=== PATIENT | male | born 1935 | race Hispanic/Latino ===

== ENCOUNTER 2017-05-20 21:34 | Observation (INO) | payer MEDICARE, MEDICAID ==
[2017-05-20 21:34] VITALS: BMI 28.8
[2017-05-20] MEDS ORDERED: Aspirin 325 mg EC Tablets PO ONE (22:31)
[2017-05-20 22:54] LABS: BASO % 0.5 % (0.0-2.0); EOS # 0.4 K/uL (0.0-0.7); EOS % 6.3 % (0.0-4.0); HEMATOCRIT 36.6 % (35.0-51.0); LYMPH # 2.1 K/uL (1.0-4.3); LYMPH % 31.9 % (20.0-40.0); MEAN CELL VOLUME 93.5 fL (80.0-94.0); MEAN CORPUSCULAR HEMOGLOBIN 31.6 pg (27.0-31.0); MEAN CORPUSCULAR HGB CONC 33.9 g/dL (33.0-37.0); MEAN PLATELET VOLUME 8.7 fL (7.2-11.7); MONO # 0.5 K/uL (0.0-0.8); MONO % 7.7 % (0.0-10.0); NRBC % 0.1 % (0.0-2.0); RED CELL DISTRIBUTION WIDTH 14.2 % (11.5-14.5); WHITE BLOOD COUNT 6.5 K/uL (4.8-10.8)
[2017-05-20 23:01] LABS: CHLORIDE 103 mmol/L (98-107)
[2017-05-20 23:02] LABS: POTASSIUM 4.4 mmol/L (3.6-5.2); SODIUM 135 mmol/L (132-148)
[2017-05-20 23:04] LABS: ALB/GLOB RATIO 1.5 (1.0-2.1); ALKALINE PHOSPHATASE 69 U/L (38-126); AST/SGOT 29 U/L (17-59); BLOOD UREA NITROGEN 23 mg/dL (9-20); CARBON DIOXIDE 25 mmol/L (22-30); GFR AFRICAN-AMERICAN > 60
[2017-05-20 23:05] LABS: ALT/SGPT 24 U/L (21-72); CALCIUM 9.2 mg/dl (8.6-10.4); GLUCOSE,RANDOM 101 mg/dL (75-110)
--- NOTE | 2017-05-20 23:31 | C.PDOC ---
History Of Present Illness 81 y/o M c PMHx HTN, HLD, CAD, CHF p/w chest pain x 2 hours. Patient began having the pain at rest, on the L sided chest in the anterior axillary area. Denies nausea, vomiting, dyspnea, fever, cough. Had R hand discomfort yesterday , now gone. Time Seen by Provider: 05/20/17 22:07 Chief Complaint (Nursing): Chest Pain Past Medical History Vital Signs: Last Vital Signs Temp 98.0 F 05/20/17 21:42 Pulse 65 05/20/17 21:42 Resp 18 05/20/17 21:42 BP 194/76 H 05/20/17 21:42 Pulse Ox 96 05/20/17 21:42 - Medical History PMH: Arthritis, CHF, Diabetes, HTN, Hypercholesterolemia, Peripheral Edema Denies: Chronic Kidney Disease - [facility] Procedures APPLICATION OF SPLINT (03/06/14) Family History: States: Unknown Family Hx - Social History Hx Tobacco Use: No Hx Alcohol Use: No Hx Substance Use: No - Immunization History Hx Tetanus Toxoid Vaccination: No Hx Influenza Vaccination: Yes (2017) Hx Pneumococcal Vaccination: Yes Review Of Systems Except As Marked, All Systems Reviewed And Found Negative. Constitutional: Negative for: Fever Respiratory: Negative for: Shortness of Breath Physical Exam - Physical Exam Appears: No Acute Distress Skin: No Rash (in area of pain) Head: Normacephalic Eye(s): bilateral: PERRL Oral Mucosa: Moist Neck: Supple Chest: Symmetrical, No Deformity, Tenderness (L sided thoracic) Cardiovascular: Rhythm Regular Respiratory: Normal Breath Sounds Gastrointestinal/Abdominal: Soft, No Tenderness Back: No CVA Tenderness, No Vertebral Tenderness Extremity: No Tenderness Pulses: Left Radial: Normal, Right Radial: Normal Neurological/Psych: Normal Speech Gait: Steady ED Course And Treatment - Laboratory Results Result Diagrams: 05/20/17 22:49 05/20/17 22:49 O2 Sat by Pulse Oximetry: 96 Medical Decision Making Medical Decision Making: CXR shows no infiltrate, PTX, or rib fracture. EKG shows NSR 66 bpm, no ST elevations. LBBB morphology. No change from previous. ASA administered. Dr. Jurado accepts patient to his service for cardiac observation. Disposition Discussed With : Sancho Jurado - Disposition Disposition: HOSPITALIZED Disposition Time: 23:31 Condition: FAIR - POA Core Measure Indicators: Chest Pain - Clinical Impression Clinical Impression: Chest pain
[2017-05-21 02:29] VITALS: RESP 20
--- NOTE | 2017-05-21 07:40 | RAD ---
HISTORY: chest pain COMPARISON: 06/29/2016 FINDINGS: LUNGS: Moderate venous congestion with patchy consolidative changes at the left lung base. Biapical pleural thickening. PLEURA: As above. CARDIOVASCULAR: Cardiomegaly. Enlarged ectatic aorta. Status post median sternotomy. OSSEOUS STRUCTURES: No significant abnormalities. VISUALIZED UPPER ABDOMEN: Normal. OTHER FINDINGS: None. IMPRESSION: Moderate venous congestion with patchy consolidative changes at the left lung base. Biapical pleural thickening. Cardiomegaly. Enlarged ectatic aorta. Status post median sternotomy.
--- NOTE | 2017-05-21 07:47 | RAD ---
HISTORY: chest pain COMPARISON: 05/20/2017 TECHNIQUE: Chest PA and lateral FINDINGS: LUNGS: Biapical pleural thickening with upper lobe granulomatous changes. Diffuse increased interstitial lung markings suggestive for edema and or infiltrate. Mild patchy increased markings at the lung bases. Nodular densities at the lung bases may represent nipple shadows. PLEURA: As above. CARDIOVASCULAR: Status post median sternotomy. Tortuous ectatic aorta. Mild cardiomegaly. OSSEOUS STRUCTURES: Prominent degenerative changes in the spine with a thoracic kyphosis. VISUALIZED UPPER ABDOMEN: Normal. OTHER FINDINGS: None. IMPRESSION: Biapical pleural thickening with upper lobe granulomatous changes. Diffuse increased interstitial lung markings suggestive for edema and or infiltrate. Mild patchy increased markings at the lung bases. Nodular densities at the lung bases may represent nipple shadows.
[2017-05-21 08:19] VITALS: TEMP 98.1; O2SAT 98
[2017-05-21] MEDS ORDERED: Digoxin 125 mcg (0.125 mg) Tab PO SCH (10:00)
[2017-05-21] MEDS ORDERED: CHOLECALCIFEROL PO SCH (10:00)
[2017-05-21] MEDS ORDERED: [UNRECOGNIZED DRUG - OTHER] PO SCH (10:00)
[2017-05-21] MEDS ORDERED: RAMIPRIL 10 MG PO SCH (10:00)
[2017-05-21] MEDS ORDERED: METFORMIN PO SCH (10:00)
[2017-05-21] MEDS ORDERED: GLIPIZIDE PO SCH (10:00)
[2017-05-21 10:08] VITALS: BP 144/71; PULSE 58
--- NOTE | 2017-05-21 10:30 | CP.PCM.HP ---
History of Present Illness - History of Present Illness History of Present Illness: Recommend: Left-sided chest pain History of present illness: 81-year-old male with a history of hypertension, CAD, status post a coronary artery bypass grafting in 2003, recently seen by a Dr. Jurado, in the office for some scrotal problems. Patient was given cream for that, and he complained to his sister that he started having some pain over the left side, and immediately patient was brought into the emergency room. In the ER patient had some chest pain, but it resolved after aspirin. Patient did not have any nausea vomiting, he did not be having any headache. Past medical history: Hypertension, high cholesterol, CAD, status post a heart surgery Allergies: No known drug allergy Personal history:, Nonalcoholic. Patient is a nonsmoker Review of systems: Patient is comfortable at this time. She is not in any distress. No chest pain now. Skinas noted in the legs. Rash also noted in the gluteal area. Abdominal pain negative. Vital signs reviewed No neck vein distention noted Chest good air entry bilaterally, no wheezing or rales noted CVS regular heart sound, no murmur noted Abdomen soft, nontender. Extremities no pedal edema [employer] alert awake oriented -3, no functional neurological deficit Patient's labs reviewed in Cardiac enzymes are negative EKG showing: Normal sinus rhythm, lateral lead ST depression noted Chest x-ray showing bibasilar haziness, nonspecific otherwise Assessment and recommendation: 81-year-old male with history of hypertension CAD status post a craniotomy bypass grafting came to the office with a nonspecific chest pain. EKG showing lateral leads and T-wave inversion. No new changes. Cardiac enzymes so far negative. Will get a cardiology opinion. I spoke to the patient's his sister Mounika. They'll continue to monitor. Out of bed to chair Repeat EKG. We'll follow the patient Present on Admission - Present on Admission Any Indicators Present on Admission: No History of DVT/PE: No History of Uncontrolled Diabetes: No Urinary Catheter: No Decubitus Ulcer Present: No Past Patient History - Past Medical History & Family History Past Medical History?: Yes - Past Social History Smoking Status: Never Smoked - CARDIAC Hx Cardiac Disorders: Yes Hx Congestive Heart Failure: Yes Hx Hypercholesterolemia: Yes Hx Hypertension: Yes Hx Peripheral Edema: Yes - PULMONARY Hx Respiratory Disorders: No - NEUROLOGICAL Hx Neurological Disorder: Yes ("SOMETIMES FORGETS") Other/Comment: HX: NEUROPATHY IN LEGS - HEENT Hx HEENT Problems: Yes Hx Macular Degeneration: Yes - RENAL Hx Chronic Kidney Disease: No - ENDOCRINE/METABOLIC Hx Endocrine Disorders: Yes Hx Diabetes Mellitus Type 2: Yes - HEMATOLOGICAL/ONCOLOGICAL Hx Blood Disorders: No - INTEGUMENTARY Hx Dermatological Problems: Yes Other/Comment: HX: SKIN LESIONS ON FACE AND LEFT HAND REMOVED 2015, 2016 Lymphedema BLE dry brown discoloration peeling scaly skin - MUSCULOSKELETAL/RHEUMATOLOGICAL Hx Musculoskeletal Disorders: No Hx Falls: No - GASTROINTESTINAL Hx Gastrointestinal Disorders: No - GENITOURINARY/GYNECOLOGICAL Hx Genitourinary Disorders: No - PSYCHIATRIC Hx Psychophysiologic Disorder: No Hx Substance Use: No - SURGICAL HISTORY Hx Surgeries: Yes Hx Herniorrhaphy: Yes (2014) Hx Open Heart Surgery: Yes (Triple bypass, 2003) - ANESTHESIA Hx Anesthesia: Yes Hx Anesthesia Reactions: No Hx Malignant Hyperthermia: No Has any member of the family had a problem w/ anesthesia?: No Meds Allergies/Adverse Reactions: Allergies Allergy/AdvReac Type Severity Reaction Status Date / Time No Known Allergies Allergy Verified 03/06/14 20:46 Results - Vital Signs Recent Vital Signs: Last Vital Signs Temp 98.1 F 05/21/17 07:30 Pulse 54 L 05/21/17 07:30 Resp 20 05/21/17 07:30 BP 144/71 05/21/17 10:07 Pulse Ox 98 05/21/17 07:30 - Labs Result Diagrams: 05/20/17 22:49 05/20/17 22:49 Labs: Laboratory Results - last 24 hr 05/20/17 05/20/17 05/21/17 22:49 22:49 06:19 WBC 6.5 RBC 3.91 L Hgb 12.4 Hct 36.6 MCV 93.5 MCH 31.6 H MCHC 33.9 RDW 14.2 Plt Count 130 MPV 8.7 Neut % (Auto) 53.6 Lymph % (Auto) 31.9 [place] % (Auto) 7.7 Eos % (Auto) 6.3 H Baso % (Auto) 0.5 Neut # 3.5 Lymph # 2.1 [place] # 0.5 Eos # 0.4 Baso # 0.0 Sodium 135 Potassium 4.4 Chloride 103 Carbon Dioxide 25 Anion Gap 12 BUN 23 H Creatinine 0.7 L Est GFR ( Amer) > 60 Est GFR (Non-Af Amer) > 60 POC Glucose (mg/dL) 140 H Random Glucose 101 Calcium 9.2 Total Bilirubin 1.0 AST 29 ALT 24 Alkaline Phosphatase 69 Total Creatine Kinase 80 CK-MB (Mass) 1.18 Troponin I 0.0130 Troponin I, Quant Total Protein 7.0 Albumin 4.2 Globulin 2.8 Albumin/Globulin Ratio 1.5 05/21/17 07:19 WBC RBC Hgb Hct MCV MCH MCHC RDW Plt Count MPV Neut % (Auto) Lymph % (Auto) [place] % (Auto) Eos % (Auto) Baso % (Auto) Neut # Lymph # [place] # Eos # Baso # Sodium Potassium Chloride Carbon Dioxide Anion Gap BUN Creatinine Est GFR ( Amer) Est GFR (Non-Af Amer) POC Glucose (mg/dL) Random Glucose Calcium Total Bilirubin AST ALT Alkaline Phosphatase Total Creatine Kinase 62 CK-MB (Mass) 1.02 Troponin I Troponin I, Quant 0.0220 Total Protein Albumin Globulin Albumin/Globulin Ratio
--- NOTE | 2017-05-21 12:30 | CP.PCM.DIS ---
Provider - Provider Date of Admission: 05/20/17 23:26 Attending physician: Sierra Pulido MD Hospital Course - Lab Results Lab Results: Most Recent Lab Values WBC 6.5 K/uL (4.8-10.8) 05/20/17 22:49 RBC 3.91 Mil/uL (4.40-5.90) L 05/20/17 22:49 Hgb 12.4 g/dL (12.0-18.0) 05/20/17 22:49 Hct 36.6 % (35.0-51.0) 05/20/17 22:49 MCV 93.5 fL (80.0-94.0) 05/20/17 22:49 MCH 31.6 pg (27.0-31.0) H 05/20/17 22:49 MCHC 33.9 g/dL (33.0-37.0) 05/20/17 22:49 RDW 14.2 % (11.5-14.5) 05/20/17 22:49 Plt Count 130 K/uL (130-400) 05/20/17 22:49 MPV 8.7 fL (7.2-11.7) 05/20/17 22:49 Neut % (Auto) 53.6 % (50.0-75.0) 05/20/17 22:49 Lymph % (Auto) 31.9 % (20.0-40.0) 05/20/17 22:49 [place] % (Auto) 7.7 % (0.0-10.0) 05/20/17 22:49 Eos % (Auto) 6.3 % (0.0-4.0) H 05/20/17 22:49 Baso % (Auto) 0.5 % (0.0-2.0) 05/20/17 22:49 Neut # 3.5 K/uL (1.8-7.0) 05/20/17 22:49 Lymph # 2.1 K/uL (1.0-4.3) 05/20/17 22:49 [place] # 0.5 K/uL (0.0-0.8) 05/20/17 22:49 Eos # 0.4 K/uL (0.0-0.7) 05/20/17 22:49 Baso # 0.0 K/uL (0.0-0.2) 05/20/17 22:49 Sodium 135 mmol/L (132-148) 05/20/17 22:49 Potassium 4.4 mmol/L (3.6-5.2) 05/20/17 22:49 Chloride 103 mmol/L (98-107) 05/20/17 22:49 Carbon Dioxide 25 mmol/L (22-30) 05/20/17 22:49 Anion Gap 12 (10-20) 05/20/17 22:49 BUN 23 mg/dL (9-20) H 05/20/17 22:49 Creatinine 0.7 mg/dL (0.8-1.5) L 05/20/17 22:49 Est GFR ( Amer) > 60 05/20/17 22:49 Est GFR (Non-Af Amer) > 60 05/20/17 22:49 POC Glucose (mg/dL) 150 mg/dL (65-110) H 05/21/17 11:04 Random Glucose 101 mg/dL (75-110) 05/20/17 22:49 Calcium 9.2 mg/dl (8.6-10.4) 05/20/17 22:49 Total Bilirubin 1.0 mg/dL (0.2-1.3) 05/20/17 22:49 AST 29 U/L (17-59) 05/20/17 22:49 ALT 24 U/L (21-72) 05/20/17 22:49 Alkaline Phosphatase 69 U/L (38-126) 05/20/17 22:49 Total Creatine Kinase 62 U/L (55-170) 05/21/17 07:19 CK-MB (Mass) 1.02 ng/mL (0.0-3.38) 05/21/17 07:19 Troponin I 0.0130 ng/mL (0.00-0.120) 05/20/17 22:49 Troponin I, Quant 0.0220 ng/mL (0.00-0.120) 05/21/17 07:19 Total Protein 7.0 g/dL (6.3-8.3) 05/20/17 22:49 Albumin 4.2 g/dL (3.5-5.0) 05/20/17 22:49 Globulin 2.8 gm/dL (2.2-3.9) 05/20/17 22:49 Albumin/Globulin Ratio 1.5 (1.0-2.1) 05/20/17 22:49 Discharge Plan - Follow Up Plan Condition: FAIR Disposition: HOME/ ROUTINE
[2017-05-21 14:11] VITALS: PULSE 40
--- NOTE | 2017-05-22 18:01 | CON ---
CARDIOLOGY CONSULTATION DATE: REQUESTED BY: Sancho Jurado MD LOCATION: Presently in room [address] [place] [address], bed 661. Requested to see this 81-year-old white male known to Dr. Jurado for many years and to us for about a year and half to two years due to left-sided pectoral chest pain. HISTORY OF PRESENT ILLNESS: Mr. Caceres is well known to us with past history of atherosclerotic heart disease and status post coronary bypass surgery about 12 to 13 years ago. 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 Kortney Kelly. Yesterday, he called his sister complaining of some sharp pain in the left side in the evening and the sister went to see him. He gets kind of upset and lately his mental status continues to deteriorate. He was crying and sister brought him to the emergency room where he appeared to be in totally stable condition. Initial cardiac biomarkers were negative. EKG was unchanged; however, because of the past history, age, etc,. he was admitted for observation. Since arrival to the hospital and arrival to [address] [place] [address], he has been totally stable. He ate breakfast quite well; however, when I asked him what happened, he did not know, he mentioned to call his sister and I asked him the same question multiple times and getting the impression here that I have seen him several times actually about 3 weeks ago or so in the office for routine followup. His mentation is slowly deteriorating, more forgetful. PAST MEDICAL HISTORY: In addition to coronary artery bypass surgery over a decade ago includes hypertension, diabetes, and mild chronic congestive heart failure compensated most of the time. He suffer from severe edema both lower extremities with , severe ulceration, and he has had multiple problems under the care of nub card tender; however, during the recent past, this ulceration, skin problems in both lower extremities have improved. He takes multiple medications under the guidance of Dr. Jurado for diabetes, hypertension, atherosclerotic heart disease, neuritic type of pain, etc., all basically unchanged. He is on beta-gigi, aspirin, diuretics on chronic basis, and also on digoxin. SOCIAL HISTORY: He is nonsmoker and nondrinker. ALLERGIES: NO KNOWN ALLERGIES. REVIEW OF SYSTEMS: Other than the pain that he had yesterday sharp that was went away quite rapidly. He denies no other problems. No shortness of breath. No dizziness. No palpitation. Eating and sleeping well. Rest of the review of systems otherwise negative. PHYSICAL EXAMINATION: GENERAL: The patient is an elderly white male. At the beginning, he did not recognize me probably because of the closing, but then later on, we were able to communicate quite well. He denied any complaints whatsoever. VITAL SIGNS: Remain totally stable. He states that the blood pressure slightly elevated due to the stress etc., above 160/75, earlier this morning around 144/71, pulse is regular, normal sinus rhythm with some occasional bradycardic range when he is resting as well as on a beta-gigi. O2 saturation is unremarkable. Afebrile. SKIN: Warm and dry. They are some prominent changes in both lower extremities due to chronic and previous surgeries, etc., due to ulceration; however; I have to say no edema at this moment, very very trace, much much improved. HEAD, EARS, NOSE, AND THROAT: Basically unremarkable. NECK: Supple. CHEST: Showing median sternotomy scar from the remote coronary artery bypass graft. There is no localized tenderness at this point in time perhaps to the left pectoral area to the axilla. He moves the arm a little. No rash. HEART: Sounds normal in intensity, regular with minimal systolic normal, basically unchanged from previous examination. LUNGS: Relatively clear. ABDOMEN: Obese. No localized tenderness. There is a scar in the inguinal area from recent several months back. CENTRAL NERVOUS SYSTEM: Unremarkable. COMPLEMENTARY DATA: From the cardiological view point and an EKG that was done here, I went to the office and compared to the one that I had done in the office basically identical similar with previous inferolateral infarction, no new changes. Cardiac biomarkers and two troponins are negative. Normal chest x-ray with cardiomegaly, atherosclerotic changes, mild congestive, which is dynamic comes and goes depending upon what he eats. He eats a lot of etc., unfortunate at times, but nothing spectacular and both are portable with poor inspiratory effort. The rest of the complimentary data basically stable similar to previous one that when he goes to Dr. Jurado and sister, Ms. Kortney Kelly brings to the office basically similar. IMPRESSION: :Atypical chest pain appears mostly noncardiac in origin, musculoskeletal with pectoral area and history of coronary artery bypass surgery, atherosclerotic heart disease, hypertension, and diabetes stable at this point. SUGGESTIONS: I discussed the case with Dr. Pulido, the physician of record at this point in time, Dr. Jurado, and Dr. Jurado, his physician for decades. From , I told him both that he is ready to go home. I also spoke with the sister, Ms. Kelly and told me that yesterday when they came to the emergency room, he was stable and at this preliminary investigation offer for him to go home and the sister decided perhaps would be better to keep him overnight for observation since he has some lot of mental challenges since and he lives alone; however, she care for him all day long and take cares of him and goes to see him daily. Presently, suggest to continue same medication. Take care of the diet when he goes home and spoke with the sister about it and to visit Dr. Jurado, early next week and since we are basically on the same floor in the same building to in the office after he finish with Dr. Jurado. Geoff Vaughn MD cc: MD Sierra Ragland MD
[2017-05-23] MEDS ORDERED: Potassium Chloride 20 mEq ER Tab PO SCH (09:00)
--- NOTE | 2017-05-23 21:19 | CARD ---
APPROVED REPORT EKG Measurement Heart [id number] <Conclusion> Normal sinus rhythm Inferio - lateral infarct, age undetermined Abnormal ECG
== END 2017-05-21 14:18 | disposition home or self-care (01) ==
LOC: C.ER 21:34 → C.9E 23:26 → C.6T 05-21 00:33
PROVIDERS: ADMIT Internal Medicine Infectious Disease; ATTEND Internal Medicine
DX: R07.89 Other chest pain (principal); I11.0 Hypertensive heart disease with heart failure; E78.00 Pure hypercholesterolemia, unspecified; I50.9 Heart failure, unspecified; E11.9 Type 2 diabetes mellitus without complications; I25.10 Atherosclerotic heart disease of native coronary artery without angina pectoris; Z95.1 Presence of aortocoronary bypass graft; Z79.84 Long term (current) use of oral hypoglycemic drugs
CPT/HCPCS: 36415; 71010; 71020; 80053; 82550; 82553; 82948; 84484; 85025; 93005; 99285; G0378

== ENCOUNTER 2018-08-18 14:17 | Emergency (ER) | payer MEDICARE, MEDICAID ==
[2018-08-18 14:17] VITALS: PULSE 58; BMI 27.4
[2018-08-18 14:46] VITALS: BP 157/70; PULSE 50; RESP 18; TEMP 97.2; O2SAT 97
--- NOTE | 2018-08-18 15:31 | C.PDOC ---
History Of Present Illness 82 year old male presents to the ED for evaluation of left shoulder pain which developed after patient sustained a mechanical fall prior to arrival. Patient states he accidentally tripped fell and landed otno his left shoulder and left elbow. Patient is now complaining of pain localized to his left shoulder that is worse with left arm movement. He denies head injury, LOC, syncope, headache, dizziness, visual changes, focal deficits, neck pain, CP, SOB, dyspnea, diaphoresis, palpitation, denies obvious deformity of left arm, weakness or sensory or vascular deficits. Ambulatory with baseline gait, not in any apparent distress. Time Seen by Provider: 08/18/18 15:04 Chief Complaint (Nursing): Upper Extremity Problem/Injury History Per: Patient History/Exam Limitations: no limitations Onset/Duration Of Symptoms: Hrs Current Symptoms Are (Timing): Still Present Quality: "Pain" Exacerbating Factor(s): Movement Additional History Per: Patient Past Medical History Reviewed: Historical Data, Nursing Documentation, Vital Signs Vital Signs: Last Vital Signs Temp 97.2 F L 08/18/18 14:40 Pulse 50 L 08/18/18 14:40 Resp 18 08/18/18 14:40 BP 157/70 H 08/18/18 14:40 Pulse Ox 97 08/18/18 14:40 - Medical History PMH: Arthritis, CHF, Diabetes, HTN, Hypercholesterolemia, Peripheral Edema Denies: Chronic Kidney Disease Surgical History: No Surg Hx - [facility] Procedures APPLICATION OF SPLINT (03/06/14) Family History: States: Unknown Family Hx - Social History Hx Tobacco Use: No Hx Alcohol Use: No Hx Substance Use: No - Immunization History Hx Tetanus Toxoid Vaccination: No Hx Influenza Vaccination: Yes (2017) Hx Pneumococcal Vaccination: Yes Review Of Systems Musculoskeletal: Positive for: Shoulder Pain (left) Neurological: Negative for: Weakness, Numbness, Headache, Dizziness, Other (syncope, LOC, head injury ) Physical Exam - Physical Exam Appears: Non-toxic, No Acute Distress Skin: Warm, Dry, Ecchymosis (trace, over left superior shoulder and left distal clavicle ) Head: Atraumatic, Normacephalic Eye(s): bilateral: PERRL Oral Mucosa: Moist Neck: Trachea Midline, No Midline Cervical Tenderness, No Paracervical Tenderness, Supple Chest: Symmetrical, No Deformity, No Tenderness Cardiovascular: Rhythm Regular, No Murmur Respiratory: No Decreased Breath Sounds, No Rales, No Rhonchi, No Stridor, No Wheezing Gastrointestinal/Abdominal: Soft Extremity: No Normal ROM (limited in left upper extremity secondary to pain, no palpable deformity), Tenderness (over left superior shoulder and left distal clavicle, trace ecchymoses), Capillary Refill (less than 2 seconds ), No Deformity, No Swelling Neurological/Psych: Oriented x3, Normal Speech, Normal Cognition, Normal Motor, Normal Sensation, Normal Reflexes ED Course And Treatment O2 Sat by Pulse Oximetry: 97 (on RA ) Pulse Ox Interpretation: Normal - Other Rad [place], left X-Ray: Interpreted by Me, Viewed By Me Interpretation: (+) humerus head fx, comminuted; distal clavicle fx Progress Note: Left elbow, left shoulder, and left humerus XR ordered and reviewed. Patient given Tylenol PO. On re-eval, pt is comofrtable, not in any apaprent distress. Afebrile, hemodynamicaly stable. Ambulatory with baseline gait. Head: AT/NC. neck: Supple, (-) midline tenderness. Lungs: CTA B/L, BS equal B/L. CVS: (+)S1S2, reg. LUE: tenderness over superior aspect left shoulder/distal clavicle, no open wound, no palpable deformity. no neurovascular deficits. neuorlogicaly intact. Imagings review (+) left humerus head, distal clavicle fx. results review with pt and family. Shoulder immobilizer applied. Pt ref. to f/u with Orth on 1-2 dyas for re-eval. return if any new changes. Disposition Counseled Patient/Family Regarding: Studies Performed, Diagnosis, Need For Followup, Rx Given - Disposition Referrals: Sancho Jurado MD [Staff Provider] - Adam Rogers III, MD [Staff Provider] - Disposition: HOME/ ROUTINE Disposition Time: 16:01 Condition: STABLE Additional Instructions: Sling at all time until re-evaluated by Orthopedist pain medication as need Follow up with Orthopedist in 2-3 days for re-evaluation. Return to ED if any worsening or new changes. Prescriptions: traMADol [Ultram] 50 mg PO BID #7 tab Instructions: Clavicle Fracture (DC), Shoulder Fracture Forms: [employer] (Greek) - Clinical Impression Clinical Impression: Shoulder fracture, Clavicle fracture - PA / UNDERWRITING SUPPORT SPECIALIST / Resident Statement MD/DO has reviewed & agrees with the documentation as recorded. - Scribe Statement The provider has reviewed the documentation as recorded by the Scribe (Zainab Aly) All medical record entries made by the Scribe were at my direction and personally dictated by me. I have reviewed the chart and agree that the record accurately reflects my personal performance of the history, physical exam, medical decision making, and the department course for this patient. I have also personally directed, reviewed, and agree with the discharge instructions and disposition.
--- NOTE | 2018-08-18 16:34 | RAD ---
PROCEDURE: Radiographs of the left humerus. HISTORY: injury COMPARISON: None. FINDINGS: BONES: Comminuted fracture of the left humeral head is appreciated impacted. No dislocation grossly evident. Remainder of the left humerus is unremarkable. Soft edema is seen at the fracture site proximal left humerus. SOFT TISSUES: As above. OTHER FINDINGS: None. IMPRESSION: Comminuted fracture proximal left humerus with remainder unremarkable. Soft tissue edema is seen surrounding the fracture site.
--- NOTE | 2018-08-18 16:35 | RAD ---
Date of service: 08/18/2018 PROCEDURE: Radiographs of the left elbow. HISTORY: injury COMPARISON: No prior. FINDINGS: BONES: No acute fracture or destructive bony lesion identified. JOINTS: Normal. No osteoarthritis. SOFT TISSUES: Medial soft tissue edema is appreciated mildly. JOINT EFFUSION: None. OTHER FINDINGS: None IMPRESSION: No acute fracture or dislocation. Medial left elbow soft tissue edema identified.
--- NOTE | 2018-08-18 16:36 | RAD ---
Date of service: 08/18/2018 PROCEDURE: Radiographs of the Left Shoulder HISTORY: injury COMPARISON: No prior. FINDINGS: BONES: Multipart fracture of the left humeral head is appreciated without dislocation impacted at the metaphysis level of the proximal left humerus. Degenerative changes are prominent at the acromioclavicular joint. A fracture of the distal clavicle is not excluded. The glenoid process appears intact however. Follow-up CT can be utilized for added characterization. JOINTS: As above. SOFT TISSUES: Fracture related edema is seen in local soft tissues. OTHER FINDINGS: None. IMPRESSION: Impacted multipart fracture left humeral head/neck without dislocation. Distal left clavicle fracture also suspected. CT can be utilized for greater characterization.
== END 2018-08-18 16:40 | disposition home or self-care (01) ==
LOC: C.ER 14:17
DX: S42.392A Other fracture of shaft of left humerus, initial encounter for closed fracture (principal); S42.032A Displaced fracture of lateral end of left clavicle, initial encounter for closed fracture; W01.0XXA Fall on same level from slipping, tripping and stumbling without subsequent striking against object, initial encounter